=== PATIENT | female | born 1940 | race Caucasian/White ===

== ENCOUNTER 2017-04-08 09:59 | Emergency (ER) | payer MEDICARE ==
[~2017-04-08] VITALS: Ht 162.6 cm; Wt 86.2 kg
[~2017-04-08 09:59] MED LIST: ACETAMINOPHEN650 M1 PO; ASPIR 8181 MG PO; ASPIRIN325 M2 MT; ATIVAN0.5 MG PO; CARAFATE1 GM PO; CLARITIN10 MG PO; ENALAPRIL MALEA10 MG PO; FUROSEMIDE40 MG PO; NASONEX17 GM INH; NEXIUM40 MG PO; PAXIL10 MG PO; PROMETHAZINE; Z.0.ATENOLOL100 MG PO; Z.0.CENTRUM SILVER1 PO; Z.0.FUROSEMIDE20 MG PO; Z.1.AMOXICILLIN500 M MT
--- NOTE | 2017-04-08 11:52 | Diagnostic Imaging Report ---
PROCEDURE:X-RAY UNILATERAL RIBS WITH CHEST X-RAY COMPARISON:None. INDICATIONS:FALL FINDINGS: Cardiac silhouette is within normal limits. No focal consolidation. No parenchymal mass. Small right pleural effusion. No pneumothorax. Degenerative changes of the thoracic spine. Normal mineralization. No acute fracture or dislocation. Joint spaces are within normal limits. Soft tissues are unremarkable. CONCLUSION: Small right pleural effusion. Dictated by: Melecio Plascencia M.D. on 04/08/2017 at 12:00 Electronically approved by: Melecio Plascencia M.D. on 04/08/2017 at 12:00
[2017-04-08 14:11] VITALS: BP 135/62
== END 2017-04-08 14:39 | disposition home or self-care (01) ==
LOC: ER 09:59
DX: G89.11 Acute pain due to trauma (principal); S20.212A Contusion of left front wall of thorax, initial encounter; W01.0XXA Fall on same level from slipping, tripping and stumbling without subsequent striking against object, initial encounter; Y92.002 Bathroom of unspecified non-institutional (private) residence as the place of occurrence of the external cause; I10 Essential (primary) hypertension; I50.9 Heart failure, unspecified; E03.9 Hypothyroidism, unspecified
CPT/HCPCS: 71101; 99283

== ENCOUNTER 2018-07-21 09:04 | Emergency (ER) | payer MEDICARE ==
[~2018-07-21] VITALS: Ht 162.6 cm; Wt 86.2 kg
--- OUTSIDE RECORDS SUMMARY | 2018-07-21 09:08 | XMS REPORT ---
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 Allergies, Adverse Reactions, Alerts This patient has no known allergies or adverse reactions. Medications This patient has no known medications. 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 INDICATIONS: FALL FINDINGS: Cardiac silhouette is within normal limits. No focal consolidation. No parenchymal mass. Small right pleural effusion. No pneumothorax. Degenerative changes of the thoracic spine. Normal mineralization. No acute fracture or dislocation. Joint spaces are within normal limits. Soft tissues are unremarkable. CONCLUSION: Small right pleural effusion. Dictated by: Sarita Gaona M.D. on 04/08/2017 at 12:00 Electronically approved by: Sarita Gaona M.D. on 04/08/2017 at 12:00 Dictated By: SARITA GAONA MD 1200 Transcribed By: YRIS on 04/08/17 1200 COPY TO: SULTANA MAYES NP
--- NOTE | 2018-07-21 10:04 | NUR ---
Yola hu in EDM - 07/21/18 at [address] Rucker in ED to see patient. received v/o to downgrade from IMCU to medsurg on tele.
--- NOTE | 2018-07-21 10:20 | Diagnostic Imaging Report ---
Exams: Head and cervical spine CTs without IV contrast History: Trauma, fall Comparison studies: None Technique: Axial images were obtained from the brain and cervical spine. Coronal and sagittal images reconstructed from the axial data. Dose modulation, iterative reconstruction, and/or weight based adjustment of the mA/kV was utilized to reduce the radiation dose to as low as reasonably achievable. Intravenous contrast: None Findings: Head CT: Scalp: Mild focal right parietal scalp swelling. No retained hyperdense foreign body. Bones: No fractures, blastic or lytic lesions. Extra-axial spaces: No masses. No fluid collections. Brain sulci: Mildly prominent. Ventricles: Mild compensatory dilatation of the frontal horns of the lateral ventricles. Mild asymmetry of the frontal horns of the right lateral ventricles with minimal deviation of the septum to the left midline. Findings may reflect anatomical variant or possibly small intraventricular arachnoid cyst. No hydrocephalus. Parenchyma: No mass, acute hemorrhage or acute cortical vascular insults. Scattered ill-defined and mildly confluent hypodensities in the supratentorial white matter are nonspecific but most compatible with chronic small vessel ischemic changes. Sellar/suprasellar region: No abnormalities. Craniocervical junction: The foramen magnum is patent. No Chiari one malformation. Cervical spine CT: Fractures: None. Soft tissues: No gross abnormalities. Atlantoaxial articulation: Intact. Alignment: Focal kyphosis at C4-C5 where there is also 5 mm anterolisthesis of C4 on C5 is most likely degenerative in etiology. Minimal anterolisthesis of C7 on T1 Cervicomedullary junction: No abnormalities. The foramen magnum is patent. Vertebrae: No infection or neoplasm. Degenerative changes: Anterior osteophytes from C3 to C7 indent the prevertebral soft tissues. C2-C3: Mildly degenerated disc with bilateral facet arthrosis and fused facets. Patent canal and foramina. C3-C4: Moderately degenerated disc. Disc ossify complex, uncovertebral arthrosis and severe left and moderate right facet arthrosis with mild canal stenosis and moderate bilateral foraminal stenosis. C4-C5: Moderately degenerated disc. Anterolisthesis of C4 on C5 with associated uncovered disc, thickened ligamentum flavum, uncovertebral arthrosis and severe bilateral facet arthrosis with moderate canal stenosis and severe bilateral foraminal stenosis. C5-C6: Severely degenerated disc. Disc osteophyte complex and uncovertebral arthrosis with moderate bilateral foraminal stenosis. No significant canal stenosis. C6-7: Mildly moderately degenerated disc. Disc osteophyte complex and uncovertebral arthrosis with moderate bilateral foraminal stenosis. No significant canal stenosis. C7-T1: Mildly degenerated disc with moderate to severe bilateral facet arthrosis. Patent canal and foramina. Incidental findings: Lens replacements for previous scattered surgery. Chronic right middle ear mastoid opacification. Atherosclerotic calcifications in the carotid siphons. Heterogeneously hypodense and partially calcified right thyroid lobe nodule or cluster of adjacent nodules measure 1.7 cm. IMPRESSION: Head CT: 1. Focal right parietal scalp swelling. 2. No retained hyperdense foreign body or fracture. 3. No acute intracranial abnormalities. 4. Mild generalized parenchymal volume loss with moderate chronic microvascular ischemic changes. Cervical spine CT: 1. No cervical spine fracture. 2. Degenerative anterolisthesis of C4 on C5 with focal cervical kyphosis and moderate canal stenosis at C4-C5. 3. Additional degenerative changes with multilevel disc degeneration, advanced facet arthrosis and moderate foraminal stenosis. 4. Incidental right thyroid lobe nodule(s). Nonemergent thyroid ultrasound could further evaluate. Cannot exclude ligament, spinal cord and or vascular abnormalities on the basis of this examination. Signed by: Dr. Justin Carlos M.D. on 07/21/2018 10:15 AM
--- NOTE | 2018-07-21 11:36 | NUR ---
urine collected and sent off to the lab. x-ray in room
--- NOTE | 2018-07-21 12:22 | Diagnostic Imaging Report ---
EXAMINATION: CHEST SINGLE (PORTABLE) INDICATION: Right-sided weakness. COMPARISON: Reports from prior chest radiographs, dating back to 09/27/2012, although images are not available for review. FINDINGS: TUBES and LINES: None. LUNGS: Lungs are well inflated. There is no evidence of pneumonia or pulmonary edema. PLEURA: No pleural effusion or pneumothorax. Elevation of the right hemidiaphragm. HEART AND MEDIASTINUM: The cardiomediastinal silhouette is unremarkable. BONES AND SOFT TISSUES: No acute osseous abnormality. UPPER ABDOMEN: No free air under the diaphragm. IMPRESSION: No acute radiographic abnormality. Elevation of the right hemidiaphragm, which was described on chest radiograph from 09/27/2012. Signed by: Dr. Isaias Sarmiento MD on 07/21/2018 12:19 PM
--- NOTE | 2018-07-21 14:25 | Diagnostic Imaging Report ---
Exam: Left hip radiographs-2 views; AP radiograph of the pelvis-1 view; left knee radiographs-3 views History: Status post fall. Comparison: None. Findings: There is diffuse osteopenia, limiting sensitivity. No evidence of acute displaced fracture. There are severe degenerative changes of bilateral hips with zsax-[id number] contact and subchondral sclerosis, and cystic change. There is mild superior subluxation of bilateral femoral heads in relation to the acetabulum. Bowel gas obscures visualization of the sacrum, which substantially limits evaluation. There are mild medial compartment predominant tricompartmental degenerative changes of the knee with joint space narrowing and bony osteophyte formation. No suprapatellar joint effusion. Impression: Diffuse osteopenia, which limits evaluation. No evidence of acute displaced fracture in the left hip, pelvis, or left knee. Moderate bilateral hip and mild left knee osteoarthritis. Signed by: Dr. Isaias Sarmiento MD on 07/21/2018 2:22 PM
--- NOTE | 2018-07-21 14:25 | Diagnostic Imaging Report ---
Exam: Left hip radiographs-2 views; AP radiograph of the pelvis-1 view; left knee radiographs-3 views History: Status post fall. Comparison: None. Findings: There is diffuse osteopenia, limiting sensitivity. No evidence of acute displaced fracture. There are severe degenerative changes of bilateral hips with okyy-fe-zsfo contact and subchondral sclerosis, and cystic change. There is mild superior subluxation of bilateral femoral heads in relation to the acetabulum. Bowel gas obscures visualization of the sacrum, which substantially limits evaluation. There are mild medial compartment predominant tricompartmental degenerative changes of the knee with joint space narrowing and bony osteophyte formation. No suprapatellar joint effusion. Impression: Diffuse osteopenia, which limits evaluation. No evidence of acute displaced fracture in the left hip, pelvis, or left knee. Moderate bilateral hip and mild left knee osteoarthritis. Signed by: Dr. Isaias Sarmiento MD on 07/21/2018 2:22 PM
--- NOTE | 2018-07-21 14:54 | Diagnostic Imaging Report ---
Exam: Lumbar spine CT without IV contrast History: Trauma, fall, pain Comparison studies: None Technique: Axial images were obtained through the lumbar spine from . Coronal and sagittal images reconstructed from the axial data. Dose modulation, iterative reconstruction, and/or weight based adjustment of the mA/kV was utilized to reduce the radiation dose to as low as reasonably achievable. Intravenous contrast: None Findings: Number of non-rib bearing vertebral bodies: 5 Alignment: Straightened cervical curvature. As well as mild lumbar curvature convex to the left. Minimal Grade 1 retrolisthesis of L4 and L5 and L5-S1. Soft tissues: No gross acute abnormalities. Paraspinal muscles: Severe symmetric dorsal paraspinal muscle atrophy. Sacroiliac joints: No degenerative changes. Vertebrae: Demineralized bones. No infection or fracture. Incidental hemangioma in the L1] vertebral body. No other neoplasm. Degenerative changes: L1-L2: Calcified thickened ligamentum flavum and mild facet arthrosis with mild canal stenosis. No significant foraminal stenosis. L2-L3: Symmetric bulging disc, calcified and thickened ligamentum flavum and facet arthrosis with mild canal stenosis. No significant foraminal stenosis. L3-L4: Disc bulge, thickened ligamentum flavum and facet arthrosis with moderate to severe canal stenosis and mild bilateral foraminal stenosis. L4-L5: Severely degenerated disc with loss of disc height. Minimal retrolisthesis of L4 and L5 with associated disc osteophyte complex, thickened ligamentum flavum and facet arthrosis with severe canal stenosis and severe left and moderate right foraminal stenosis. L5-S1: Severely degenerated disc with loss of disc height. Minimal retrolisthesis of L5 on S1 with associated disc osteophyte complex, thickened ligamentum flavum and facet arthrosis with severe bilateral foraminal stenosis and mild canal stenosis. Incidental findings: Scattered calcified atherosclerosis in the abdominal aorta and iliac vessels. IMPRESSION: 1. No lumbar spine fracture. 2. Demineralized bones. 3. Severe dorsal paraspinal muscular atrophy. 4. Multilevel degenerative changes most notable for severe L4-L5 and L5-S1 disc degeneration, moderate to severe canal stenosis at L3-L4, severe canal stenosis at L4-5 and severe foraminal stenosis on the left at L4-L5 and bilaterally at L5-S1. Signed by: Dr. Justin Carlos M.D. on 07/21/2018 2:51 PM
== END 2018-07-21 17:12 | disposition home or self-care (01) ==
LOC: ER 09:04
DX: S00.03XA Contusion of scalp, initial encounter (principal); S70.02XA Contusion of left hip, initial encounter; S80.02XA Contusion of left knee, initial encounter; S00.01XA Abrasion of scalp, initial encounter; W01.0XXA Fall on same level from slipping, tripping and stumbling without subsequent striking against object, initial encounter; Y92.002 Bathroom of unspecified non-institutional (private) residence as the place of occurrence of the external cause; E03.9 Hypothyroidism, unspecified; K21.9 Gastro-esophageal reflux disease without esophagitis; E66.9 Obesity, unspecified; M19.90 Unspecified osteoarthritis, unspecified site
CPT/HCPCS: 70450; 71045; 72125; 72131; 99284

== ENCOUNTER 2018-08-02 14:04 | Inpatient (IN) | payer MEDICARE ==
[~2018-08-02] VITALS: Ht 162.6 cm; Wt 88.9 kg
[2018-08-02 14:46] LABS: BASOPHILS % 0.3 % (0.0-1.0); EOSINOPHILS # (AUTO) 0.1 (0.0-0.4); EOSINOPHILS % 1.2 % (0.0-6.0); HEMATOCRIT 40.5 % (34.2-44.1); HEMOGLOBIN 12.8 g/dL (12.0-16.0); LYMPHOCYTES # (AUTO) 2.3 (1.0-3.2); LYMPHOCYTES % 23.2 % (18.0-39.1); MEAN CORPUSCULAR HEMOGLOBIN 31.8 pg (28-32); MEAN CORPUSCULAR HGB CONC 31.6 g/dL (31-35); MEAN CORPUSCULAR VOLUME 100.5 fL (81-99); MONOCYTES # (AUTO) 0.7 (0.2-0.8); MONOCYTES % 7.1 % (4.4-11.3); NEUTROPHILS # (AUTO) 6.7 (2.1-6.9); NEUTROPHILS % 67.9 % (38.7-80.0); PLATELET COUNT 183 x10e3/uL (140-360); RED BLOOD COUNT 4.03 x10e6/uL (3.6-5.1); RED CELL DISTRIBUTION WIDTH 11.9 % (11.7-14.4)
[2018-08-02 14:53] LABS: INR 0.91; PROTHROMBIN TIME 12.7 seconds (11.9-14.5)
[2018-08-02 14:54] LABS: PARTIAL THROMBOPLASTIN TIME 26.1 seconds (23.8-35.5)
[2018-08-02 15:05] LABS: ALANINE AMINOTRANSFERASE 16 IU/L (0-55); ALBUMIN 3.3 g/dL (3.5-5.0); ALKALINE PHOSPHATASE 103 IU/L (40-150); AMYLASE 121 U/L (25-125); ANION GAP 13.3 mmol/L (8-16); BLOOD UREA NITROGEN 34 mg/dL (7-26); BUN/CREATININE RATIO 31 (6-25); CALCIUM 9.4 mg/dL (8.4-10.2); CARBON DIOXIDE 30 mmol/L (22-29); CHLORIDE 99 mmol/L (98-107); CREATINE KINASE 63 IU/L (29-168); EST GLOMERULAR FILTRATION RATE 48 ML/MIN (60-); GLUCOSE 155 mg/dL (74-118); LIPASE 50 U/L (8-78); POTASSIUM 4.3 mmol/L (3.5-5.1); SODIUM 138 mmol/L (136-145)
[2018-08-02] MEDS ORDERED: DIATRIZOATE MEGL/DIATRIZOA SOD 30 ML BTL PO ONE (15:09)
--- NOTE | 2018-08-02 15:17 | Diagnostic Imaging Report ---
Examination: Single AP view of the chest. COMPARISON: 07/21/2018 INDICATION: Dizzy, blurred vision DISCUSSION: Right hemidiaphragmatic elevation is again noted. Lungs remain well-inflated and without focal consolidation, pleural effusion, or pneumothorax. Stable cardiomediastinal contour. No pulmonary edema. No acute osseous abnormality. IMPRESSION: No acute cardiopulmonary abnormality. Stable appearance of the chest relative to 07/21/2018. Signed by: Dr. Justin Aguila M.D. on 08/02/2018 3:13 PM
--- NOTE | 2018-08-02 15:30 | NUR ---
RECEIVED CALL FROM RADIOLOGY FOR LOW GFR, WILL INITIATE HYDRATION PROTOCOL AT THIS TIME.
[2018-08-02] MEDS ORDERED: SODIUM CHLORIDE 0.9% 1000ML 1,000 ML ONE (15:41)
--- NOTE | 2018-08-02 16:20 | NUR ---
LARGE BM NOTED AT THIS TIME, PROVIDED INCONTINENCE CARE AT THIS TIME, NEW ADULT BRIEF AND INCONTINENCE PADS APPLIED.
[2018-08-02] MEDS ORDERED: SODIUM CHLORIDE 0.9% 1000ML 1,000 ML IV STA (16:32)
--- NOTE | 2018-08-02 17:30 | NUR ---
LARGE BM NOTED, INCONTINENCE CARE PROVIDED, FOUL ODOR, OCCULT STOOL COLLECTED AT THIS TIME PER ORDERS FROM JOE HEADLEY. NEW ADULT BRIEF AND PAD PROVIDED.
[2018-08-02 17:31] LABS: BILIRUBIN,URINE NEGATIVE (NEGATIVE); CLARITY,URINE SL CLOUDY (CLEAR); COLOR,URINE YELLOW (YELLOW); KETONES,URINE NEGATIVE (NEGATIVE); LEUKOCYTE ESTERASE ,URINE NEGATIVE (NEGATIVE); NITRITE,URINE NEGATIVE (NEGATIVE); PROTEIN,URINE DIPSTICK NEGATIVE (NEGATIVE); URINE UROBILINOGEN 0.2 mg/dL (0.2 - 1)
[2018-08-02 17:46] LABS: BACTERIA,URINE MODERATE /HPF; EPITHELIAL CELLS,URINE FEW /LPF; HYALINE CASTS 0-1 (0-1)
[2018-08-02] MEDS ORDERED: IOPAMIDOL 370 MG/ML 200 ML INFUS..BTL INJ ONE (18:57)
[2018-08-02] MEDS ORDERED: SODIUM CHLORIDE 0.9% 50ML 50 ML ONE (18:57)
--- NOTE | 2018-08-02 19:31 | Diagnostic Imaging Report ---
EXAM: CT Abdomen and Pelvis WITH contrast INDICATION: ^abdominal pain ^[id number] ^1830 ^Y COMPARISON: None. TECHNIQUE: Abdomen and pelvis were scanned utilizing a multidetector helical scanner from the lung base to the pubic symphysis after administration of IV contrast. Coronal and sagittal reformations were obtained. Dose modulation, iterative reconstruction, and/or weight based adjustment of the mA/kV was utilized to reduce the radiation dose to as low as reasonably achievable. Routine protocol was performed. Scan was performed when during portal venous phase. IV CONTRAST: 100 mL of Isovue-370 ORAL CONTRAST: Gastroview COMPLICATIONS: None RADIATION DOSE: Total DLP: 765.83 mGy*cm Estimated effective dose: (DLP x 0.015 x size factor) mSv CTDIvol has been reviewed. It is below the limits set by the Radiation Protocol Committee (RPC). FINDINGS: LINES and TUBES: None. LOWER THORAX: Mild right basilar atelectasis/scarring. HEPATOBILIARY: No focal hepatic lesions. No biliary ductal dilation. GALLBLADDER: No radio-opaque stones or sludge. No wall thickening. SPLEEN: No splenomegaly. PANCREAS: No focal masses or ductal dilatation. ADRENALS: No adrenal nodules KIDNEYS/URETERS: Kidneys enhance symmetrically. No hydronephrosis. No cystic or solid mass lesions. Right renal midpole hypodensity is probably a cyst. No stones. GI TRACT: No evidence of bowel obstruction. Transverse, descending, and rectosigmoid colonic wall thickening. Appendix is not visualized. PELVIC ORGANS/BLADDER: Unremarkable. LYMPH NODES: No lymphadenopathy. VESSELS: There is mild atherosclerotic disease in the aorta and major arterial branches. PERITONEUM / RETROPERITONEUM: No free air or fluid. BONES: Generalized demineralization. Severe degenerative changes of the bilateral hip joints. Advanced degenerative changes of spine, most notable at L4-L5 and L5-S1. Grade 1 anterolisthesis of S1 in relation to L5. L1 vertebral body hemangioma. SOFT TISSUES: Paraspinal muscular atrophy. IMPRESSION: 1. Wall thickening of the most of the colon, concerning for infectious/inflammatory colitis. Otherwise, no acute inflammatory process in the abdomen/pelvis. Signed by: Dr. Ramon Esparza MD on 08/02/2018 7:27 PM
[2018-08-02] MEDS ORDERED: METRONIDAZOLE 500MG/NS 100ML 100 ML IV SCH (20:00)
[2018-08-02] MEDS ORDERED: LEVOFLOXACIN 750MG/D5W 150ML 150 ML IV SCH (20:00)
[2018-08-02] MEDS ORDERED: FAMOTIDINE 20 MG/2 ML VIAL IV ONE (20:29)
[2018-08-02] MEDS ORDERED: MORPHINE SULFATE INJ 4 MG/ML INJ 1ML IV ONE (20:30)
[2018-08-02] MEDS ORDERED: DICYCLOMINE HCL 20 MG/2 ML VIAL IM ONE (20:30)
[2018-08-02] MEDS: ONDANSETRON HCL INJ 2MG/ML 2ML 2 MG/ML VIAL IV PRN (21:50)
[2018-08-02] MEDS: SODIUM CHLORIDE 0.9% 1000ML 1,000 ML IV SCH (21:50)
[2018-08-02 22:56] VITALS: BP 128/78
--- NOTE | 2018-08-02 23:00 | NUR ---
Pt admitted to room 285. Dx: Colitis, + guaiac stool, near syncope. Alert to name, "I'm at Patient hospital because my legs were numb and eyes were blurry". VSS. Hard of hearing, right hearing aid. RUQ, LUQ abdominal pain 8/10. "It feels like gas pain". BS active x4 quads. >3 stools past 24 hours. C Diff results pending. Tele#13, HR 95 SR. Denies SOB. +2 LE pulses. Chairbound, uses W/C at home. Incontinent B/B, has on diaper. Bloody stools. Inner sacrum redness. External hemorrhoid noted. Oriented to room. Call coy within reach. Bed low and locked. Bed alarm on. Will continue to monitor.
[2018-08-02 23:55] VITALS: BP 128/78
[2018-08-02 23:56] VITALS: BP 128/78
[2018-08-03] VITALS (7 sets, daily range): BP systolic 94–151; BP diastolic 49–69
[2018-08-03] MEDS: SODIUM CHLORIDE 0.9% 1000ML 1,000 ML IV SCH ×2 (05:30→13:57)
[2018-08-03 05:49] LABS: BASOPHILS % 0.1 % (0.0-1.0); EOSINOPHILS # (AUTO) 0.3 (0.0-0.4); EOSINOPHILS % 1.9 % (0.0-6.0); HEMATOCRIT 36.5 % (34.2-44.1); HEMOGLOBIN 12.3 g/dL (12.0-16.0); LYMPHOCYTES # (AUTO) 0.9 (1.0-3.2); LYMPHOCYTES % 5.8 % (18.0-39.1); MEAN CORPUSCULAR HEMOGLOBIN 32.5 pg (28-32); MEAN CORPUSCULAR HGB CONC 33.7 g/dL (31-35); MEAN CORPUSCULAR VOLUME 96.6 fL (81-99); MONOCYTES # (AUTO) 1.4 (0.2-0.8); MONOCYTES % 9.3 % (4.4-11.3); NEUTROPHILS # (AUTO) 12.6 (2.1-6.9); NEUTROPHILS % 82.6 % (38.7-80.0); PLATELET COUNT 178 x10e3/uL (140-360); RED BLOOD COUNT 3.78 x10e6/uL (3.6-5.1); RED CELL DISTRIBUTION WIDTH 12.1 % (11.7-14.4)
[2018-08-03] MEDS: ONDANSETRON HCL INJ 2MG/ML 2ML 2 MG/ML VIAL IV PRN (06:00)
[2018-08-03 06:05] LABS: ALANINE AMINOTRANSFERASE 35 IU/L (0-55); ALBUMIN 2.8 g/dL (3.5-5.0); ALBUMIN/GLOBULIN RATIO 0.9 (0.8-2.0); ALKALINE PHOSPHATASE 95 IU/L (40-150); ANION GAP 10.5 mmol/L (8-16); BLOOD UREA NITROGEN 21 mg/dL (7-26); BUN/CREATININE RATIO 27 (6-25); CALCIUM 9.1 mg/dL (8.4-10.2); CARBON DIOXIDE 27 mmol/L (22-29); CHLORIDE 103 mmol/L (98-107); CREATININE, SERUM 0.79 mg/dL (0.57-1.11); EST GLOMERULAR FILTRATION RATE > 60 ML/MIN (60-); GLUCOSE 141 mg/dL (74-118); POTASSIUM 4.5 mmol/L (3.5-5.1); SODIUM 136 mmol/L (136-145)
--- NOTE | 2018-08-03 06:35 | NUR ---
Pt resting quietly in bed lying supine HOB 45degrees side. RLE pain tolerable at 5/10. No distress noted. Call coy within reach. Addendum: 08/03/18 at 0638 by Alesia King RN Abdomen pain tolerable 5/10.
[2018-08-03] MEDS: METRONIDAZOLE 500MG/NS 100ML 100 ML IV SCH ×3 (09:04→23:29)
[2018-08-03 10:35] LABS: LYMPHOCYTES % (MANUAL) 10 % (19-48); MONOCYTES % (MANUAL) 4 % (3.4-9.0); NEUTROPHILS % (MANUAL) 84 % (40-74); PLATELET ESTIMATE ADEQUATE; PLATELET MORPHOLOGY COMMENT NORMAL; RBC MORPHOLOGY COMMENT NORMAL
[2018-08-03] MEDS: ASPIRIN 81 MG CHEW TAB PO SCH (11:56)
[2018-08-03] MEDS: LORATADINE 10 MG TAB PO SCH (11:56)
[2018-08-03] MEDS: PANTOPRAZOLE SOD 40 MG TABEC PO SCH (11:56)
--- NOTE | 2018-08-03 16:07 | NUR ---
WOUND CARE CONSULTATION - INITIAL EVALUATION Patient admitted for colitis, with positive guaic stool, near syncope LABS: WBC15.28 HGB12.3 HCT36.5 NEUT%82.6 Stool Occult Blood - Positive Alb 2.78 Wound Care Consulted for evaluation of sacral ulcer PATIENT VISIT: Pleasant 78 y/o female, hard of hearing, AAOX4, good historian. Sates to have been struggling with an ulcer at home on her bottom and states its feeling better so it must be getting better. Diapered Garner in place Presents with ulceration to Sacral/ Mid Gluteal Fold area, oval shaped, with periwound blanchable redness and glossy appearance. Partial thickness skin loss, 100 granular. Voices some discomfort upon palpation. Light drainage noted. Serous fluid. IMPRESSION: 1. Sacral/Mid-Gluteal Fold - Stage II - Pressure Ulcer POA - Wash area with mild soap and water then pat dry thoroughly q12H and PRN Soiling - Apply Jules Cream and Cover with Allevyn Foam Sacrum Dressing q12H and PRN soiling RECOMMENDATION: 1. Sacral/Mid-Gluteal Fold - Stage II - Pressure Ulcer POA - Wash area with mild soap and water then pat dry thoroughly q12H and PRN Soiling - Apply Jules Cream and Cover with Allevyn Foam Sacrum Dressing q12H and PRN soiling 2. Turn and Reposition Patient every 2 hours using turning schedule 3. HOB Elevated no greater than 30 degrees as tolerated 4. Bilateral Heel protectors / offload heels with pillows while in bed. 5. Continue alternating pressure air mattress and set to patient current weight. Thank you for consulting with Wound Care. Addendum: 08/03/18 at 1614 by Kenney Pascual RN Amended: Links added.
[2018-08-03] MEDS ORDERED: ONDANSETRON HCL 4 MG ORAL DISINTEGRATING TAB PO PRN (17:00)
[2018-08-03] MEDS: ACETAMINOPHEN 325 MG TAB PO PRN (17:24)
[2018-08-03] MEDS: VANCOMYCIN 250MG/5ML ORAL SOLN PO SCH ×2 (18:17→23:29)
[2018-08-03] MEDS: ZINC OXIDE / BALSAM PERU 30 GM TUBE TOP SCH (20:47)
--- NOTE | 2018-08-03 21:00 | NUR ---
Cleaned with NS and applied Jules ointment with Mepilex dressing on redness area of buttock as ordered. Patient tolerated well. Will continue to monitor.
--- NOTE | 2018-08-03 21:57 | Consultation ---
DATE OF CONSULTATION: 08/03/2018 ID Consult REASON FOR CONSULTATION: Colitis. Thank you Dr. Patricia for asking me to see this patient. HISTORY OF PRESENT ILLNESS: The patient is a 78-year-old woman, who was admitted to the emergency department and referred for colitis. She presented to the emergency department with a change in mental status. She was having cramping abdominal pain and urgency of defecation and diarrhea and alerted the daughter. When the daughter came to help her to the toilet, she was acting confused. The patient did not have fever, sick contacts, recent travel or animal exposure. She visited the ER several weeks ago following a fall. In the emergency department, she was noted to have temperature of 98.4 degrees Fahrenheit, pulse rate 67, respiratory rate 16, blood pressure 127/87, and oxygen saturation 99% on room air. Initial laboratory studies showed blood leukocyte count of 9890 with 67% neutrophils, BUN 37, creatinine 1.1, and negative urinalysis. CT scan of the abdomen and pelvis showed wall thickening of most of the colon worrisome for inflammatory/infectious colitis. PAST MEDICAL HISTORY: Hypertension, thyroid disease, gastroesophageal reflux disease, which are bound. PAST SURGICAL HISTORY: Tubal ligation. ALLERGIES: THE PATIENT CLAIMED THAT SULFA MADE HER SICK TO THE STOMACH. MEDICATIONS: The current antibiotics are Levaquin 750 mg IV piggyback q.24 hours and Flagyl 500 mg IV piggyback q.8 hours. IMMUNIZATIONS: She received pneumococcal vaccination in the past. FAMILY HISTORY: Noncontributory. SOCIAL HISTORY: No alcohol use. She quit smoking cigarettes many years ago. REVIEW OF SYSTEMS: As per history of present illness. PHYSICAL EXAMINATION: GENERAL: No acute distress. VITAL SIGNS: T-max 98.7, pulse rate 90, respiratory rate 20, blood pressure 151/69, and weight 190 pounds. HEENT: Normocephalic. There is no icterus or injection of conjunctivae. There is no ear or nasal discharge. Moist oral mucosa. No pharyngeal erythema or exudate. NECK: Supple. No meningismus. LUNGS: Good air entry bilaterally. HEART: Normal S1 and S2. Regular. ABDOMEN: Soft with mild periumbilical tenderness. No rebound tenderness. EXTREMITIES: There is no edema, clubbing, or cyanosis. SKIN: There is no acute erythema. SKATE BOARDER: Awake, alert, oriented to person, place, and time. LABORATORY AND DIAGNOSTICS: WBC 18406, hemoglobin 12.3, platelet 780565, neutrophils 84, lymphocytes 10, and monocytes 4. BUN 21, creatinine 0.7, AST 39, ALT 35, alkaline phosphatase 95, total bilirubin 0.7, amylase 121, and lipase 50. Stool occult blood positive. C diff toxin negative once. IMPRESSION: 1. Colitis, worrisome for Clostridium difficile, present on admission. 2. Positive stool occult blood. 3. Abdominal pain. PLAN: 1. Stop Levaquin and start vancomycin 125 mg p.o. q.6 hours. 2. Consult Gastroenterology service if not yet done. MD LEXUS Dwyer/CARA /[id number]
[2018-08-04] VITALS (8 sets, daily range): BP systolic 107–129; BP diastolic 51–66
[2018-08-04] MEDS: ACETAMINOPHEN 325 MG TAB PO PRN ×3 (01:26→17:25)
[2018-08-04] MEDS: SODIUM CHLORIDE 0.9% 1000ML 1,000 ML IV SCH ×3 (01:26→23:05)
--- NOTE | 2018-08-04 05:20 | NUR ---
Dressing changed,cleaned and applied Wilton ointment with Mepilex dressing on redness area of buttock as ordered. Patient tolerated well. Will continue to monitor.
[2018-08-04] MEDS: VANCOMYCIN 250MG/5ML ORAL SOLN PO SCH ×4 (05:40→23:51)
[2018-08-04 05:51] LABS: BASOPHILS % 0.3 % (0.0-1.0); EOSINOPHILS % 0.1 % (0.0-6.0); HEMATOCRIT 33.9 % (34.2-44.1); HEMOGLOBIN 11.1 g/dL (12.0-16.0); LYMPHOCYTES # (AUTO) 2.1 (1.0-3.2); LYMPHOCYTES % 15.5 % (18.0-39.1); MEAN CORPUSCULAR HEMOGLOBIN 32.2 pg (28-32); MEAN CORPUSCULAR HGB CONC 32.7 g/dL (31-35); MEAN CORPUSCULAR VOLUME 98.3 fL (81-99); MONOCYTES # (AUTO) 1.4 (0.2-0.8); MONOCYTES % 10.5 % (4.4-11.3); NEUTROPHILS # (AUTO) 9.8 (2.1-6.9); NEUTROPHILS % 73.2 % (38.7-80.0); PLATELET COUNT 149 x10e3/uL (140-360); RED BLOOD COUNT 3.45 x10e6/uL (3.6-5.1); RED CELL DISTRIBUTION WIDTH 12.3 % (11.7-14.4)
[2018-08-04 06:12] LABS: ALANINE AMINOTRANSFERASE 19 IU/L (0-55); ALBUMIN 2.4 g/dL (3.5-5.0); ALBUMIN/GLOBULIN RATIO 0.8 (0.8-2.0); ALKALINE PHOSPHATASE 74 IU/L (40-150); ANION GAP 9.5 mmol/L (8-16); BLOOD UREA NITROGEN 14 mg/dL (7-26); BUN/CREATININE RATIO 20 (6-25); CALCIUM 9.2 mg/dL (8.4-10.2); CARBON DIOXIDE 26 mmol/L (22-29); CHLORIDE 110 mmol/L (98-107); CREATININE, SERUM 0.71 mg/dL (0.57-1.11); EST GLOMERULAR FILTRATION RATE > 60 ML/MIN (60-); GLUCOSE 99 mg/dL (74-118); POTASSIUM 4.5 mmol/L (3.5-5.1); SODIUM 141 mmol/L (136-145)
--- NOTE | 2018-08-04 06:24 | History and Physical ---
HISTORY OF PRESENT ILLNESS: She is a 78-year-old female patient of mine, presented to the emergency room with a complaint of severe abdominal pain and cramping and diarrhea, and the patient had a fall in the restroom and she had injury to her scalp. The patient was having abdominal pain and is also complaining of diarrhea. REVIEW OF SYSTEMS: The patient has a syncopal episode. The patient has a bloody diarrhea and weakness. PAST MEDICAL HISTORY: The patient has a medical history of advanced osteoarthritis, CHF, and hypertension. PAST SURGICAL HISTORY: Hemorrhoidectomy. MEDICATIONS: See from the list. ALLERGIES: THE PATIENT HAS ALLERGIES TO SULFA. SOCIAL HISTORY: Denies smoking. Denies using alcohol. Lives with her family. PHYSICAL EXAMINATION: GENERAL: She is an elderly female patient lying in the bed, not in any acute distress. VITAL SIGNS: Temperature 99, pulse rate 88, respiration rate 18, and blood pressure 110/70. HEENT: Normocephalic, atraumatic. Mucosa dry. The patient has mild scalp wound. LUNGS: Bilateral equal air entry. No rales, no rhonchi. HEART: S1, S2 regular. No murmur. No gallop. ABDOMEN: Soft. Bowel sounds present. Mild tenderness in present. NEUROLOGIC: No focal deficit. LABORATORY EXAMINATION: The patient had an elevated white blood count, and CT scan of the abdomen had showed diffuse colitis. ADMITTING INPATIENT DIAGNOSES: Acute abdominal pain, diffuse colitis with bloody diarrhea and infectious colitis probably. Rule out Clostridium difficile and dehydration, congestive heart failure , and osteoarthritis. PLAN: The patient is admitted with above diagnosis. The patient will be treated with IV Flagyl and Levaquin. We will start clear liquid diet. We will hold the Lasix, and we will obtain ID and GI consultation. MD DEBBI Hayes/CARA /[id number]
--- NOTE | 2018-08-04 06:50 | NUR ---
RECEIVED PATIENT RESTING IN BED. NO ACUTE DISTRESS NOTED. DENIES PAIN OR DISCOMFORT. CALL LIGHT WITHIN REACH. BED IN THE LOWEST POSITION.
--- NOTE | 2018-08-04 07:05 | NUR ---
Report given to oncoming nurse,walking round done.
[2018-08-04] MEDS: ZINC OXIDE / BALSAM PERU 30 GM TUBE TOP SCH ×2 (08:00→22:11)
[2018-08-04] MEDS: PANTOPRAZOLE SOD 40 MG TABEC PO SCH (08:45)
[2018-08-04] MEDS: METRONIDAZOLE 500MG/NS 100ML 100 ML IV SCH ×3 (08:45→23:51)
[2018-08-04] MEDS: ATENOLOL 100 MG TAB PO SCH (08:46)
[2018-08-04] MEDS: ASPIRIN 81 MG CHEW TAB PO SCH (08:46)
[2018-08-04] MEDS: ENALAPRIL MALEATE 10 MG TAB PO SCH (08:46)
[2018-08-04] MEDS: LORATADINE 10 MG TAB PO SCH (08:46)
[2018-08-04 14:06] LABS: ANISOCYTOSIS SLIGHT; BAND NEUTROPHILS % (MANUAL) 2 %; LYMPHOCYTES % (MANUAL) 7 % (19-48); METAMYELOCYTES % (MANUAL) 1 % (0-0); MONOCYTES % (MANUAL) 4 % (3.4-9.0); NEUTROPHILS % (MANUAL) 86 % (40-74); PLATELET ESTIMATE SLIGHTLY DECREASED; PLATELET MORPHOLOGY COMMENT NORMAL; RBC MORPHOLOGY COMMENT NORMAL
--- NOTE | 2018-08-04 14:50 | NUR ---
Nutrition Intervention Note RD Recommendation(s) for Physician: -Rec ADAT to GI soft diet -Rec Adalberto BID to support wound healing -Rec MVi w/minerals and vitamin C for wound healing Plan of Care: RD following, monitoring for tolerance and adequacy, ONS Nutrition reason for involvement: Stage II pressure ulcer RD Assessment 08/04 Chart reviewed. 78yo F, who was admitted for abdominal pain and urgency to defecate. Abd/pel CT showed colitis. Pending C diff result. Visited pt in the room. Pt still complained of some abdominal pain and diarrhea this AM. No vomiting episode reported. Pt was able to tolerate clear liquid for breakfast. No complains of chewing or swallowing difficulty. No weight loss noted with UBW ~180lbs. Wound care following for stage II pressure ulcer. No physical sign of fat/muscle loss upon observation. Will continue to monitor and follow. Principal Problems/Diagnoses: colitis, positive stool occult blood PMH: advanced osteoarthritis, CHF, and hypertension. GI: abdomen soft, round, tender, LBM 08/04 (diarrhea) Skin: Sacral/Mid-Gluteal Fold - Stage II - Pressure Ulcer POA Labs: reviewed Meds: abx, NaCl, protonix Ht: 64in Wt: 196lb BMI: 33.6kg/m2 IBW: 120lb Malnutrition Evaluation (08/04/2018) The patient does not meet criteria for a specified degree of malnutrition at this time. Will re-evaluate at follow-up as appropriate. Nutrition Prescription (Diet Order): full liquid Estimated Nutritional Needs: Calories: 1210 1375kcal(22-25kcal/kg/d) Weight used: IBW Protein: 110 138g(2-2.5g/kg/d) Weight used: IBW Diet Adequacy: Not meeting calorie needs, Not meeting protein needs Diet Education Needs Assessment: Diet education indicated, but patient not appropriate for education at this time. Nutrition Care Level: low Nutrition Diagnosis: Increased protein needs related to altered skin integrity as evidenced by stage II pressure ulcer. Goal: Patient will meet 75-100% of estimated needs by follow up Progress: N/A Interventions: Fiber-modified diet, Commercial food, Multivitamin/mineral supplement therapy, Collaboration with other providers Monitoring/Evaluation: Total energy intake, Total protein intake, Modified diet, supplement, Weight change Signed: Nuha Lima, MS, RD, LD
--- NOTE | 2018-08-04 19:24 | NUR ---
REPORT GIVEN TO ONCOMING NURSE. PATIENT IS RESTING IN BED. NO ACUTE DISTRESS NOTED. CALL LIGHT WITHIN REACH. BED IN THE LOWEST POSITION.
--- NOTE | 2018-08-04 19:26 | NUR ---
PT IS RESTING IN BED WITH FAMILY AT BEDSIDE. NO RESPIRATORY DISTRESS NOTED. BED IN THE LOWEST ROOM, LOCKED, AND CALL LIGHT WITHIN REACH.
[2018-08-05] VITALS (8 sets, daily range): BP systolic 108–126; BP diastolic 54–66
--- NOTE | 2018-08-05 02:24 | Consultation ---
DATE OF CONSULTATION: 08/04/2018 HISTORY OF PRESENT ILLNESS: This is a 78-year-old, who presented to the hospital because of abdominal pain. She has cramping along with some diarrhea. The patient's workup apparently we feel that she has leukocytosis with a WBC of 15.8 and she had a CAT scan of abdomen and pelvis, which shows possible colitis. Her stool C diff, however, is negative. She has been given some antibiotic at this point with Flagyl. She is doing a little bit better. She apparently had colonoscopy about 6 years or so ago, which had some polyp that was removed. PAST MEDICAL HISTORY: Medical problem is significant for history of osteoarthritis, CHF, and hypertension, status post hemorrhoidectomy. ALLERGIES: SULFA. CURRENT MEDICATIONS: Including vancomycin, Flagyl, Claritin, Vasotec, Tenormin, and Protonix. SOCIAL HISTORY: No alcohol use. FAMILY HISTORY: Noncontributory. REVIEW OF SYSTEMS: Denies any chest pain at this point. Denies any shortness of breath. Denies any dysphagia or odynophagia. Denies any dysuria, hematuria, or any kind of syncopal episode. PHYSICAL EXAMINATION: GENERAL: The patient is awake, alert, appears to be stable, not in acute distress at this point. VITAL SIGNS: Afebrile currently with stable vital signs. HEAD, EYES, EARS, NOSE, AND THROAT: Normocephalic, atraumatic. Sclerae anicteric. NECK: Supple. HEART: Regular. ABDOMEN: Soft. Abdomen is mildly distended. There is no rebound or mass. EXTREMITIES: Demonstrates no clubbing or cyanosis. LABORATORY VALUES: WBC of 13.39, hemoglobin of 11.1, and hematocrit of 33.9. The CMP appears to be normal. PT 12.7 and 0.9, and C diff negative. CAT scan showed evidence of colitis. IMPRESSION: 1. abdominal pain and diarrhea. The patient has some colitis or possibly infectious colitis, but C diff has been negative so far.. 2. History of congestive heart failure. 3. History of arthritis. RECOMMENDATION: Continue antibiotic at this point, follow labs and clinically. We will consider colonoscopy if symptoms persist. Otherwise, she will need a colonoscopy as an outpatient. MD JASON Traore/MODL /[id number] cc: Ruiz Patricia MD
[2018-08-05] MEDS: VANCOMYCIN 250MG/5ML ORAL SOLN PO SCH ×4 (05:53→23:23)
[2018-08-05 06:44] LABS: BASOPHILS # (AUTO) 0.1 (0.0-0.1); BASOPHILS % 0.4 % (0.0-1.0); EOSINOPHILS # (AUTO) 0.2 (0.0-0.4); EOSINOPHILS % 1.3 % (0.0-6.0); HEMATOCRIT 32.4 % (34.2-44.1); HEMOGLOBIN 10.6 g/dL (12.0-16.0); LYMPHOCYTES # (AUTO) 1.6 (1.0-3.2); LYMPHOCYTES % 11.9 % (18.0-39.1); MEAN CORPUSCULAR HEMOGLOBIN 32.7 pg (28-32); MEAN CORPUSCULAR HGB CONC 32.7 g/dL (31-35); MONOCYTES # (AUTO) 1.2 (0.2-0.8); MONOCYTES % 8.7 % (4.4-11.3); NEUTROPHILS # (AUTO) 10.4 (2.1-6.9); NEUTROPHILS % 77.5 % (38.7-80.0); PLATELET COUNT 149 x10e3/uL (140-360); RED BLOOD COUNT 3.24 x10e6/uL (3.6-5.1); RED CELL DISTRIBUTION WIDTH 12.2 % (11.7-14.4)
--- NOTE | 2018-08-05 06:50 | NUR ---
RECEIVED PATIENT RESTING IN BED. RESPIRATIONS EVEN AND UNLABORED, NO ACUTE DISTRESS NOTED. DENIES PAIN OR DISCOMFORT. CALL LIGHT WITHIN REACH. BED IN THE LOWEST POSITION.
[2018-08-05 07:16] LABS: ALANINE AMINOTRANSFERASE 17 IU/L (0-55); ALBUMIN 2.2 g/dL (3.5-5.0); ALBUMIN/GLOBULIN RATIO 0.8 (0.8-2.0); ALKALINE PHOSPHATASE 88 IU/L (40-150); ANION GAP 9.9 mmol/L (8-16); BLOOD UREA NITROGEN 9 mg/dL (7-26); BUN/CREATININE RATIO 15 (6-25); CALCIUM 8.7 mg/dL (8.4-10.2); CARBON DIOXIDE 22 mmol/L (22-29); CHLORIDE 111 mmol/L (98-107); CREATININE, SERUM 0.59 mg/dL (0.57-1.11); EST GLOMERULAR FILTRATION RATE > 60 ML/MIN (60-); GLUCOSE 85 mg/dL (74-118); POTASSIUM 3.9 mmol/L (3.5-5.1); SODIUM 139 mmol/L (136-145)
[2018-08-05] MEDS: PANTOPRAZOLE SOD 40 MG TABEC PO SCH (08:15)
[2018-08-05] MEDS: LORATADINE 10 MG TAB PO SCH (08:15)
[2018-08-05] MEDS: ENALAPRIL MALEATE 10 MG TAB PO SCH (08:15)
[2018-08-05] MEDS: ATENOLOL 100 MG TAB PO SCH (08:15)
[2018-08-05] MEDS: METRONIDAZOLE 500MG/NS 100ML 100 ML IV SCH ×3 (08:15→23:23)
[2018-08-05] MEDS: ZINC OXIDE / BALSAM PERU 30 GM TUBE TOP SCH ×2 (08:15→22:29)
[2018-08-05] MEDS: ASPIRIN 81 MG CHEW TAB PO SCH (08:15)
[2018-08-05 14:23] LABS: BAND NEUTROPHILS % (MANUAL) 6 %; LYMPHOCYTES % (MANUAL) 13 % (19-48); MONOCYTES % (MANUAL) 9 % (3.4-9.0); NEUTROPHILS % (MANUAL) 71 % (40-74)
[2018-08-05 14:24] LABS: ANISOCYTOSIS SLIGHT; HYPOCHROMASIA SLIGHT; PLATELET ESTIMATE SLIGHTLY DECREASED; PLATELET MORPHOLOGY COMMENT NORMAL; RBC MORPHOLOGY COMMENT NORMAL
[2018-08-05] MEDS: SODIUM CHLORIDE 0.9% 1000ML 1,000 ML IV SCH (14:40)
--- NOTE | 2018-08-05 19:11 | NUR ---
REPORT GIVEN TO ONCOMING NURSE, WALKING ROUNDS DONE. PATIENT IS RESTING IN BED. NO ACUTE DISTRESS NOTED. CALL LIGHT WITHIN REACH. BED IN THE LOWEST POSITION.
--- NOTE | 2018-08-05 19:13 | NUR ---
PT IS RESTING IN BED. NO RESPIRATORY DISTRESS NOTED. BED IN THE LOWEST POSITION, LOCKED, AND CALL LIGHT WITHIN REACH. WILL CONTINUE TO MONITOR.
[2018-08-05] MEDS: CHOLESTYRAMINE 4 GM PACKET PO SCH (22:28)
[2018-08-06] VITALS (8 sets, daily range): BP systolic 122–144; BP diastolic 58–68
[2018-08-06] MEDS: VANCOMYCIN 250MG/5ML ORAL SOLN PO SCH ×2 (05:03→13:11)
[2018-08-06] MEDS: SODIUM CHLORIDE 0.9% 1000ML 1,000 ML IV SCH ×3 (05:06→22:40)
[2018-08-06 07:24] LABS: BASOPHILS % 0.3 % (0.0-1.0); EOSINOPHILS # (AUTO) 0.2 (0.0-0.4); EOSINOPHILS % 1.8 % (0.0-6.0); HEMATOCRIT 32.5 % (34.2-44.1); HEMOGLOBIN 10.3 g/dL (12.0-16.0); LYMPHOCYTES # (AUTO) 1.7 (1.0-3.2); LYMPHOCYTES % 14.3 % (18.0-39.1); MEAN CORPUSCULAR HEMOGLOBIN 31.4 pg (28-32); MEAN CORPUSCULAR HGB CONC 31.7 g/dL (31-35); MEAN CORPUSCULAR VOLUME 99.1 fL (81-99); MONOCYTES % 8.7 % (4.4-11.3); NEUTROPHILS # (AUTO) 8.9 (2.1-6.9); NEUTROPHILS % 74.2 % (38.7-80.0); PLATELET COUNT 183 x10e3/uL (140-360); RED BLOOD COUNT 3.28 x10e6/uL (3.6-5.1); RED CELL DISTRIBUTION WIDTH 12.1 % (11.7-14.4)
--- NOTE | 2018-08-06 07:30 | NUR ---
Pt received in bed. Pt is aox4 and able to verbalize needs. Denies any pain at this time. Pt denies shortness of breath. Continuous on IVF NS@60ml/hr and well tolerated.
[2018-08-06 07:43] LABS: ALANINE AMINOTRANSFERASE 14 IU/L (0-55); ALBUMIN 2.1 g/dL (3.5-5.0); ALBUMIN/GLOBULIN RATIO 0.8 (0.8-2.0); ALKALINE PHOSPHATASE 88 IU/L (40-150); ANION GAP 8.7 mmol/L (8-16); BLOOD UREA NITROGEN 8 mg/dL (7-26); BUN/CREATININE RATIO 14 (6-25); CALCIUM 8.4 mg/dL (8.4-10.2); CARBON DIOXIDE 22 mmol/L (22-29); CHLORIDE 111 mmol/L (98-107); CREATININE, SERUM 0.58 mg/dL (0.57-1.11); EST GLOMERULAR FILTRATION RATE > 60 ML/MIN (60-); GLUCOSE 81 mg/dL (74-118); POTASSIUM 3.7 mmol/L (3.5-5.1); SODIUM 138 mmol/L (136-145)
[2018-08-06] MEDS: METRONIDAZOLE 500MG/NS 100ML 100 ML IV SCH ×2 (08:31→16:21)
[2018-08-06] MEDS: PANTOPRAZOLE SOD 40 MG TABEC PO SCH (08:31)
[2018-08-06] MEDS: ASPIRIN 81 MG CHEW TAB PO SCH (08:31)
[2018-08-06] MEDS: LORATADINE 10 MG TAB PO SCH (08:31)
[2018-08-06] MEDS: ENALAPRIL MALEATE 10 MG TAB PO SCH (08:32)
[2018-08-06] MEDS: ATENOLOL 100 MG TAB PO SCH (08:32)
[2018-08-06] MEDS: ZINC OXIDE / BALSAM PERU 30 GM TUBE TOP SCH ×2 (08:32→20:43)
[2018-08-06] MEDS: CHOLESTYRAMINE 4 GM PACKET PO SCH ×4 (08:32→22:40)
--- NOTE | 2018-08-06 12:17 | NUR ---
CM SPOKE TO PATIENT AT BEDSIDE REGARDING IMM LETTER. IMM LETTER GIVEN WITH EXPLANATION BASED ON ANTICIPATED DISCHARGE DATE. ORIGINAL SIGNED AND PLACED IN CHART; COPY OF ORIGINAL DOCUMENT GIVEN TO PATIENT AT BEDSIDE AND PLACED IN CARE TRANSITION FOLDER. CM CONTACT INFORMATION GIVEN TO PATIENT FOR ANY NEEDS OR CONCERNS. PATIENT WITH NO FURTHER QUESTIONS.
--- NOTE | 2018-08-06 17:28 | NUR ---
Pt in bed. AOX4 and able to verbalize needs. Denies any pain at this time. Continues on IVF NS@70ml/hr and well tolerated.
--- NOTE | 2018-08-06 19:30 | NUR ---
Rounding done. Received patient in bed. Patient is [place], A&Ox4, respirations even & unlabored, no distress noted. IV fluids running @ 70cc/hr. Patient denies any issues at this time. Call light within reach, bed alarm set, siderailsx2 raised & bed set to lowest position.
[2018-08-07] VITALS (8 sets, daily range): BP systolic 115–135; BP diastolic 56–62
[2018-08-07] MEDS: METRONIDAZOLE 500MG/NS 100ML 100 ML IV SCH ×4 (00:07→23:56)
[2018-08-07 06:20] LABS: BASOPHILS % 0.5 % (0.0-1.0); EOSINOPHILS # (AUTO) 0.2 (0.0-0.4); EOSINOPHILS % 2.9 % (0.0-6.0); HEMATOCRIT 32.3 % (34.2-44.1); HEMOGLOBIN 10.5 g/dL (12.0-16.0); LYMPHOCYTES # (AUTO) 1.8 (1.0-3.2); LYMPHOCYTES % 21.1 % (18.0-39.1); MEAN CORPUSCULAR HEMOGLOBIN 32.1 pg (28-32); MEAN CORPUSCULAR HGB CONC 32.5 g/dL (31-35); MEAN CORPUSCULAR VOLUME 98.8 fL (81-99); MONOCYTES % 11.6 % (4.4-11.3); NEUTROPHILS # (AUTO) 5.3 (2.1-6.9); NEUTROPHILS % 63.2 % (38.7-80.0); PLATELET COUNT 206 x10e3/uL (140-360); RED BLOOD COUNT 3.27 x10e6/uL (3.6-5.1)
[2018-08-07] MEDS: ACETAMINOPHEN 325 MG TAB PO PRN ×2 (07:15→16:24)
--- NOTE | 2018-08-07 07:30 | NUR ---
Received pt in bed with eyes closed. Easily arouses with verbal stimuli. Pt is aox4 and able to verbalize needs. Denies any pain at this time. Continues on IVf NS@70ml/hr and well tolerated.
[2018-08-07] MEDS: PANTOPRAZOLE SOD 40 MG TABEC PO SCH (07:58)
[2018-08-07] MEDS: ASPIRIN 81 MG CHEW TAB PO SCH (07:58)
[2018-08-07] MEDS: LORATADINE 10 MG TAB PO SCH (07:58)
[2018-08-07] MEDS: ZINC OXIDE / BALSAM PERU 30 GM TUBE TOP SCH ×2 (07:59→21:00)
[2018-08-07] MEDS: ATENOLOL 100 MG TAB PO SCH (07:59)
[2018-08-07] MEDS: ENALAPRIL MALEATE 10 MG TAB PO SCH (07:59)
[2018-08-07] MEDS: CHOLESTYRAMINE 4 GM PACKET PO SCH ×4 (10:00→22:00)
[2018-08-07] MEDS: SODIUM CHLORIDE 0.9% 1000ML 1,000 ML IV SCH (13:02)
--- NOTE | 2018-08-07 14:39 | NUR ---
SW spoke with patient regarding aftercare plan. Patient is aware of MD recommendations to SNF but she is uncertain if she wants to attend. Patient would like to receive services at home via home health. Patient resides alone but receives family support from her daughter. Patient has not had home care in the past but would benefit from assistance at home. Patient uses a wheelchair to move around and her daughters help with cooking/cleaning. Patient had a previous hospitalization 2 weeks ago after she fell at home. Patient's Primary Care Physician is MD Patricia. As per patient there has been no change in medication during her last admission. SW requested to speak with her daughter who she had identified as the one to help with decision making for her care. However, patient states daughter is on a road trip at the moment with plans to return tomorrow. Patient will discuss aftercare planning with daughter upon her return. CM to follow up with choice. Patient given list of SNF along with ALOC for her family to review.
--- NOTE | 2018-08-07 17:46 | NUR ---
Pt in bed. Denies any pain at this time. Continues on IVF, NS@70ml/hr and well tolerated. Pt participated with PT this afternoon and sat in chair for about two hours.
--- NOTE | 2018-08-07 19:05 | NUR ---
Completed bedside rounds with morning nurse. Pt alert and orient to name. Lying in bed HOB 45 degrees. Denies pain at this time. Call coy within reach. Will continue to monitor.
[2018-08-08] VITALS (8 sets, daily range): BP systolic 114–146; BP diastolic 56–68
[2018-08-08] MEDS: SODIUM CHLORIDE 0.9% 1000ML 1,000 ML IV SCH ×2 (04:00→16:26)
--- NOTE | 2018-08-08 06:59 | NUR ---
Pt lying quietly in bed. No distress noted.
--- NOTE | 2018-08-08 07:30 | NUR ---
Pt in bed with eye open aox4 and able to verbalize needs. Denies any pain at this time. Pt is continues on IVF NS@70ml/hr and well tolerated.
[2018-08-08] MEDS: ATENOLOL 100 MG TAB PO SCH (08:16)
[2018-08-08] MEDS: ASPIRIN 81 MG CHEW TAB PO SCH (08:16)
[2018-08-08] MEDS: PANTOPRAZOLE SOD 40 MG TABEC PO SCH (08:16)
[2018-08-08] MEDS: METRONIDAZOLE 500MG/NS 100ML 100 ML IV SCH ×2 (08:16→16:26)
[2018-08-08] MEDS: LORATADINE 10 MG TAB PO SCH (08:16)
[2018-08-08] MEDS: ZINC OXIDE / BALSAM PERU 30 GM TUBE TOP SCH ×2 (08:17→21:00)
[2018-08-08] MEDS: ENALAPRIL MALEATE 10 MG TAB PO SCH (08:17)
[2018-08-08] MEDS: CHOLESTYRAMINE 4 GM PACKET PO SCH ×5 (10:00→22:00)
--- NOTE | 2018-08-08 16:24 | NUR ---
Dr. Patricia here to see pt and states she can go to [facility] when she is accepted. Pt is back in bed at this time after being up in chair for a couple of hours.
--- NOTE | 2018-08-08 17:58 | NUR ---
Pt in bed aox4 and able to verbalize needs. Denies any pain at this time. 0 s/s of acute distress noted. Continues on IVF NS@ 70ml/hr and well tolerated. Pt only had one BM this shift.
--- NOTE | 2018-08-08 19:00 | NUR ---
Bedside rounds completed with morning nurse. Pt alert and orient to name. Lying in bed HOB 45 degrees. Denies pain at this time. Call coy within reach. Will continue to monitor.
[2018-08-09] VITALS: BP 110/55
[2018-08-09 04:00] VITALS: BP 118/54
[2018-08-09 06:06] LABS: BASOPHILS % 0.2 % (0.0-1.0); EOSINOPHILS # (AUTO) 0.2 (0.0-0.4); EOSINOPHILS % 2.3 % (0.0-6.0); HEMATOCRIT 32.2 % (34.2-44.1); LYMPHOCYTES # (AUTO) 2.3 (1.0-3.2); LYMPHOCYTES % 27.6 % (18.0-39.1); MEAN CORPUSCULAR HEMOGLOBIN 32.8 pg (28-32); MEAN CORPUSCULAR HGB CONC 34.2 g/dL (31-35); MEAN CORPUSCULAR VOLUME 96.1 fL (81-99); MONOCYTES # (AUTO) 1.2 (0.2-0.8); NEUTROPHILS # (AUTO) 4.5 (2.1-6.9); NEUTROPHILS % 53.9 % (38.7-80.0); PLATELET COUNT 253 x10e3/uL (140-360); RED BLOOD COUNT 3.35 x10e6/uL (3.6-5.1); RED CELL DISTRIBUTION WIDTH 12.2 % (11.7-14.4)
[2018-08-09 06:50] LABS: ALANINE AMINOTRANSFERASE 13 IU/L (0-55); ALBUMIN 2.2 g/dL (3.5-5.0); ALBUMIN/GLOBULIN RATIO 0.8 (0.8-2.0); ALKALINE PHOSPHATASE 81 IU/L (40-150); BLOOD UREA NITROGEN 6 mg/dL (7-26); BUN/CREATININE RATIO 10 (6-25); CALCIUM 8.4 mg/dL (8.4-10.2); CARBON DIOXIDE 26 mmol/L (22-29); CHLORIDE 111 mmol/L (98-107); CREATININE, SERUM 0.59 mg/dL (0.57-1.11); EST GLOMERULAR FILTRATION RATE > 60 ML/MIN (60-); GLUCOSE 91 mg/dL (74-118); SODIUM 141 mmol/L (136-145)
[2018-08-09 07:19] VITALS: BP 140/61
--- NOTE | 2018-08-09 07:25 | NUR ---
PATIENT IN BED RESTING WITH HEAD OF BED ELEVATED, NO DISTRESS NOTED. IV FLUID IN PROGRESS. BED IN LOWER POSITION, CALL LIGHT AT REACH.
[2018-08-09 07:30] VITALS: BP 140/61
[2018-08-09] MEDS: PANTOPRAZOLE SOD 40 MG TABEC PO SCH (08:10)
[2018-08-09] MEDS: ENALAPRIL MALEATE 10 MG TAB PO SCH (09:18)
[2018-08-09] MEDS: ATENOLOL 100 MG TAB PO SCH (09:18)
[2018-08-09] MEDS: ASPIRIN 81 MG CHEW TAB PO SCH (09:18)
[2018-08-09] MEDS: METRONIDAZOLE 500MG/NS 100ML 100 ML IV SCH ×3 (09:18→15:37)
[2018-08-09] MEDS: LORATADINE 10 MG TAB PO SCH (09:18)
[2018-08-09] MEDS: ZINC OXIDE / BALSAM PERU 30 GM TUBE TOP SCH (09:19)
[2018-08-09] MEDS: CHOLESTYRAMINE 4 GM PACKET PO SCH ×2 (10:00→14:00)
--- NOTE | 2018-08-09 10:38 | NUR ---
SPOKE WITH PATIENT ABOUT SNF, SIGNED CHOICE FOR [facility] WANT TO CONTINUE CARE WITH DR Thor PEARSON. FAXED CLINICALS TO [phone]
[2018-08-09 11:06] VITALS: BP 144/66
--- NOTE | 2018-08-09 11:27 | NUR ---
PATIENT ASSISTED OUT OF BED TO CHAIR BY PHYSIACL THERAPY. SITTING UP WITH CALL LIGHT AT REACH, WILL CLOSELY MONITOR.
[2018-08-09 15:29] VITALS: BP 143/65
--- NOTE | 2018-08-09 15:43 | NUR ---
PT ACCEPTED TO ROOM [address] Thor PEARSON GAVE INFORMATION TO NURSE FOR COMPLETION OF TRANSFER
--- NOTE | 2018-08-09 16:20 | NUR ---
PATIENT ASSISTED WITH DIAPER CHANGE, A ABM. REPOSITIONED IN BED. IV FLUID INFUSING ORDERED, CALL LIGHT AT REACH.
--- NOTE | 2018-08-09 16:21 | NUR ---
CM SPOKE TO PATIENT AND PATIENT DAUGHTER AT BEDSIDE REGARDING IMM LETTER. IMM LETTER GIVEN WITH EXPLANATION BASED ON ANTICIPATED DISCHARGE DATE. ORIGINAL SIGNED AND PLACED IN CHART; COPY OF ORIGINAL DOCUMENT GIVEN TO PATIENT AT BEDSIDE AND PLACED IN CARE TRANSITION FOLDER. CM CONTACT INFORMATION GIVEN TO PATIENT FOR ANY NEEDS OR CONCERNS. PATIENT WITH NO FURTHER QUESTIONS.
--- NOTE | 2018-08-10 08:36 | Discharge Summary ---
HISTORY: She is a 78-year-old female patient presented to the Emergency Room with abdominal pain, diarrhea, and the patient had a syncopal episode at home. ADMITTING IMPRESSION/DIAGNOSIS: Infectious colitis, diffuse colitis, dehydration, syncope, history of congestive heart failure, and osteoarthritis. HOSPITAL COURSE SUMMARY: The patient was admitted with above diagnosis. Stool with C difficile was ordered. The patient was started on Levaquin and Flagyl. ID consult was done and patient's Levaquin was stopped and patient was given Flagyl. IV Flagyl was given and p.o. vancomycin was added. The patient had GI consult also done, Dr. Charles. Initially, scan of the abdomen was done and found to have diffuse colitis most likely infectious colitis. The patient has a low albumin level secondary to acute illness. The patient's occult blood was positive and the colitis. The patient had C difficile study was done, which was negative. The patient was also given physical therapy and occupation therapy. The patient had taken a prolonged course for the recovery. The patient got better, but still very weak and the [facility]. The patient will be followed up as an outpatient. MD DEBBI Hayes/CARA /[id number]
== END 2018-08-09 19:37 | DRG 392 ==
LOC: ER 14:04 → ERHOLD 20:05 → MED/SURG3 22:52
PROVIDERS: ADMIT Internal Medicine; ATTEND Internal Medicine
DX: A09 Infectious gastroenteritis and colitis, unspecified (principal); E86.0 Dehydration; E88.09 Other disorders of plasma-protein metabolism, not elsewhere classified; M19.90 Unspecified osteoarthritis, unspecified site; Z87.891 Personal history of nicotine dependence; I11.0 Hypertensive heart disease with heart failure; I50.9 Heart failure, unspecified
CPT/HCPCS: 36415; 71045; 74177; 80053; 81001; 82150; 82270; 82550; 82553; 83690; 84484; 85025; 85610; 85730; 87045; 87328; 87493; 93005; 97139; 99285; J0500; J2270; J2405; J7030; Q9967

== ENCOUNTER 2025-01-13 17:11 | Emergency (ER) | payer MEDICARE ==
[~2025-01-13 17:11] MED LIST changes: +ASPIRIN EC81 MG PO; +ELIQUIS5 MG PO; +ENTRESTO 24 MG1 EACH PO; +METOPROLOL SUCC50 MG PO; +PANTOPRAZOLE SO40 MG PO; +PROTONIX20 MG PO
[2025-01-13 18:10] VITALS: TEMP 98.1
[2025-01-13 18:46] LABS: BASOPHILS % 0.2 % (0.0-1.0); EOSINOPHILS % 0.9 % (0.0-6.0); LYMPHOCYTES % 20.0 % (18.0-39.1); MONOCYTES % 7.6 % (4.4-11.3); NEUTROPHILS % 70.9 % (38.7-80.0); RED CELL DISTRIBUTION WIDTH 13.1 % (11.7-14.4)
[2025-01-13] MEDS: ONDANSETRON HCL INJ 2MG/ML 2ML 2 MG/ML VIAL IV STA (18:56)
[2025-01-13] MEDS: SODIUM CHLORIDE 0.9% 1000ML 1,000 ML IV ONE (18:56)
[2025-01-13 19:09] LABS: EST GLOMERULAR FILTRATION RATE 54.0 ML/MIN (>=60)
[2025-01-13] MEDS ORDERED: IOPAMIDOL 370 MG/ML 100 ML INFUS..BTL INJ ONE (19:21)
[2025-01-13 22:22] LABS: LEUKOCYTE ESTERASE ,URINE NEGATIVE (NEGATIVE); PROTEIN,URINE DIPSTICK NEGATIVE (NEGATIVE); URINE UROBILINOGEN 0.2 mg/dL (0.2 - 1); WBC,URINE (MAN) 0-5 /HPF (0-5)
[2025-01-13 22:31] LABS: EPITHELIAL CELLS,URINE MODERATE /LPF
[2025-01-13 23:00] VITALS: PULSE 95; RESP 21
[2025-01-14 00:53] VITALS: BP 102/60; PULSE 71; RESP 21; TEMP 97.9; O2SAT 96
== END 2025-01-13 23:55 | disposition home or self-care (01) ==
LOC: ER 18:23
DX: R10.13 Epigastric pain (principal); K58.9 Irritable bowel syndrome, unspecified; I10 Essential (primary) hypertension; I50.9 Heart failure, unspecified; E03.9 Hypothyroidism, unspecified; K21.9 Gastro-esophageal reflux disease without esophagitis; M19.09 Primary osteoarthritis, other specified site
CPT/HCPCS: 36415; 74177; 80053; 81001; 83690; 85025; 93005; 99284; J2405; J7030; Q9967